=== PATIENT | male | born 1955 | race Caucasian/White ===

== ENCOUNTER → 2022-04-29 | Outpatient (CLI) | payer MEDICARE ==
--- NOTE | 2022-04-29 08:31 | MR ---
EXAMINATION TYPE: MR knee LT wo con DATE OF EXAM: 04/29/2022 COMPARISON: Outside left knee x-rays April 20, 2022 HISTORY: Left knee inner pain and locking for 2.5 months after twisting injury TECHNIQUE: Multiplanar, multisequence images of the knee is performed without IV contrast. FINDINGS: MEDIAL MENISCUS: Medial bulging medial meniscus on coronal images. Emaciated appearance to the payer specialist ior horn with abnormal signal. LATERAL MENISCUS: Some central increased signal seen best on coronal images. CRUCIATE LIGAMENTS: The anterior and posterior cruciate ligaments are intact and unremarkable. COLLATERAL LIGAMENTS: The medial collateral ligament and lateral collateral ligament complex are inta ct. Some increased signal medial collateral ligament with some surrounding edema. EXTENSOR MECHANISM: Visualized quadriceps and patellar tendons are intact. EFFUSION: Moderate to large size suprapatellar joint effusion. POPLITEAL CYST: No popliteal/pham cyst. TRICOMPARTMENT SPACES: Mild tricompartment joint space loss and spurring. CARTILAGE: Tricompartment articular cartilage is preserved BONE MARROW SIGNAL: No focal abnormal marrow signal is appreciated. OTHER: No additional significant abnormality is appreciated. IMPRESSION: 1. Complex full thickness tear posterior horn medial meniscus. 2. [id number] MCL sprain injury. 3. Moderate to large-sized suprapatellar joint effusion. 4. Mild tricompartment degenerative changes as detailed above. 5. Intrasubstance tear lateral meniscus, no full-thickness tear clearly seen.
== END | disposition home or self-care (01) ==
LOC: RADMRIMAIN 06:59
PROVIDERS: ATTEND Orthopaedic Surgery
DX: S83.412A Sprain of medial collateral ligament of left knee, initial encounter (principal); S83.282A Other tear of lateral meniscus, current injury, left knee, initial encounter; M17.12 Unilateral primary osteoarthritis, left knee; M25.462 Effusion, left knee